=== PATIENT | female | born 1980 | race Caucasian/White ===

== ENCOUNTER → 2016-09-01 | Outpatient (CLI) | payer OTHER ==
[~2016-09-01] MED LIST: ADVIN25/60 INH; ALBU1AER9 INH; ALPR2TAB6 PO; ATR10 PO; CLON0.1T12 PO; FLX10 PO; MIRT30TA3 PO; NRN800 PO; PRED50TA PO; PRZ/40 PO; SBTSL/8 SL
== END | disposition home or self-care (01) ==
LOC: C.LAB 15:46
DX: Z02.83 Encounter for blood-alcohol and blood-drug test (principal)

== ENCOUNTER → 2016-09-04 | Outpatient (CLI) | payer OTHER | END | disposition home or self-care (01) | LOC: C.LAB 05:30 | DX: Z02.83 Encounter for blood-alcohol and blood-drug test (principal) ==

== ENCOUNTER 2016-09-05 02:06 | Emergency (ER) | payer OTHER ==
[~2016-09-05] VITALS: Ht 203.2 cm; Wt 101.5 kg
[~2016-09-05 02:06] MED LIST changes: -PRED50TA PO
[2016-09-05 02:10] VITALS: Ht 203.2 cm; Wt 101.5 kg
[2016-09-05] MEDS ORDERED: METHYLPREDNISOLONE 125 MG VIAL IV STA (02:42)
[2016-09-05] MEDS ORDERED: ALBUT/IPRATROP 3MG/0.5MG NEB 3 ML VIAL INH STA (02:42)
[2016-09-05 03:02] LABS: URINE APPEARANCE CLEAR (CLEAR); URINE BILIRUBIN NEG (NEG); URINE COLOR DK YELLOW; URINE NITRITE NEG (NEG); URINE PH 5.5 (4.5-7.5); UROBILINOGEN NEG (NEG); ZZUR CULT IF INDIC CLEAN CATCH NO
[2016-09-05 03:10] LABS: MANUAL MICROSCOPIC REQUIRED? NO; REVIEW REQ? NO
[2016-09-05 03:13] LABS: BASO % 0.2 %; BASO ABS # 0.02 K/uL (0-0.2); COMPLETE YES; EOS % 1.7 %; HEMATOCRIT 34.5 % (37-47); IG% 0.6 %; LYMPH % 40.6 %; LYMPH ABS # 3.36 K/uL (1.2-3.4); MEAN CELL VOLUME 83.7 fL (80-100); MEAN CORPUSCULAR HEMOGLOBIN 27.4 pg (25-34); MEAN CORPUSCULAR HGB CONC 32.8 g/dl (32-36); MEAN PLATELET VOLUME 10.7 fL (7.4-10.4); MONO % 12.1 %; NEUT % 44.8 %; PLATELET COUNT 299 K/uL (130-400); RED BLOOD COUNT 4.12 M/uL (4.2-5.4); WHITE BLOOD COUNT 8.28 K/uL (4.8-10.8)
[2016-09-05 03:29] LABS: PARTIAL THROMBOPLASTIN RATIO 1.1; PROTHROMBIN TIME (PATIENT) 11.1 SECONDS (9.0-12.0)
[2016-09-05 03:32] LABS: BUN/CREATININE RATIO 17.1 (10-20); CALCIUM 8.6 mg/dl (8.5-10.1); CREATININE 0.56 mg/dl (0.60-1.20); MAGNESIUM 2.4 mg/dl (1.8-2.4); POTASSIUM 3.6 mmol/L (3.5-5.1)
[2016-09-05 03:35] LABS: ALB/GLOB RATIO 0.6 (0.9-2)
--- NOTE | 2016-09-05 04:59 | EMERGENCY ROOM VISIT NOTE ---
History First contact with patient: 02:18 Chief Complaint: VAGINAL BLEEDING Stated Complaint: HEAVEY BLEEDING FROM VAGINAL AREA History of Present Illness The patient is a 35 year old female who presents to the Emergency Department by private vehicle for evaluation of her vaginal bleeding. The patient reports that she had her typical period one week ago. She noticed clots in the toilet after using the bathroom 3 days ago. This evening she developed pinkish discharge with wiping. She has had increasing bleeding since. She is went through 1.5 boxes of tampons since 5 PM. She reports this is abnormal for her. She reports a history of tubal ligation several years ago. She reports no chance for . She also reports history of during a twin . Patient recently was on a course of azithromycin secondary to bronchitis. She reports that her cough has not improved. She does have history of asthma as well as COPD. The patient complains of mild pelvis discomfort and overall rates her pain 9/10. She is tried nothing over-the- counter for her symptoms. She is on no blood thinners. She denies any headaches, dizziness, lightheadedness, hemoptysis, hematochezia, melena, hematuria, or dysuria. She denies any vaginal discharge or drainage. Review of Systems A complete 10-point Review of Systems was discussed with the patient, with pertinent positives and negatives listed in the History of Present Illness. All remaining Review of Systems questions can be considered negative unless otherwise specified. Past Medical/Surgical History Medical Problems: (1) Anxiety State Nos (2) Asthma, Unspecified (3) Cough (4) Enlargement Lymph Nodes (5) Headache (6) Hypotension (7) Nasal & Sinus Dis Nec (8) Tobacco Use Disorder (9) Viral Infection Nos Family History Diabetes mellitus FH: cancer FH: gallbladder disease FH: heart disease FH: lung disease Hypertension Kidney disease Kidney stones Seizures Social History Smoking Status: Current Every Day Smoker Smokeless Tobacco Use: No Alcohol Use: none Marital Status: in relationship Housing Status: lives with significant other Occupation Status: unemployed Current/Historical Medications Scheduled Buprenorphine HCl (Buprenorphine HCl), 8 MG SL DAILY Clonidine Hcl (Catapres), 0.1 MG PO BID Fluoxetine Hcl (Prozac), 40 MG PO DAILY Fluticasone Prop/Salmeterol (Advair Diskus 250/50 60 Dose), 1 PUFF INH BID Gabapentin (Gabapentin), 800 MG PO TID Hydroxyzine HCl (Hydroxyzine HCl), 10 MG PO TID Mirtazapine (Remeron), 30 MG PO DAILY Prednisone (Prednisone), 50 MG PO DAILY Scheduled PRN Albuterol (Proair Hfa), 2 PUFFS INH Q4H PRN for SOB/Wheezing Alprazolam (Alprazolam), 2 MG PO BID PRN for Anxiety Cyclobenzaprine HCl (Cyclobenzaprine HCl), 10 MG PO TID PRN for Muscle Spasms Allergies Coded Allergies: Ketorolac Tromethamine (Verified Allergy, Severe, RED, BLOTCHY SKIN, TIGHT JAW, 09/05/16) Nifedipine (Verified Allergy, Mild, 09/05/16) Tramadol (Unverified Allergy, Unknown, UNKNOWN, 09/05/16) Physical Exam Vital Signs Date Time Temp Pulse Resp B/P Pulse Ox O2 Delivery O2 Flow Rate FiO2 09/05/16 05:32 92 20 135/90 93 Room Air 09/05/16 04:12 84 16 119/67 91 Room Air 09/05/16 02:10 85 18 132/90 99 Room Air Pain Rating (0-10): 9 Physical Exam VITAL SIGNS - Vital signs and nursing notes were reviewed. GENERAL - 35-year-old Female appearing her stated age who is in no acute distress. Communicates well with provider and answers questions appropriately. LUNGS - Chest wall symmetric without accessory muscle use, intercostals retractions, or central cyanosis. Normal vesicular breath sounds CTA B/L. No wheezes, rales, or rhonchi appreciated. CARDIAC - RRR with S1/S2. No murmur, rubs, or gallops appreciated. ABDOMEN - Abdominal contour obese without pulsations or visible masses. BS normoactive all four quadrants. No tenderness to palpation appreciated throughout. No palpable masses, hepatosplenomegaly, or ascites noted. FISH RECEIVER - (An RN nurse wall insulation sprayer was present throughout the entire FISH RECEIVER procedure.) SPECULUM EXAM: - Water-soluble lubricant was applied to the plastic speculum and inserted into the vagina in a downward fashion towards the location of the cervix. When resistance was met, the speculum was opened to visualize the cervix. The cervical os was closed and without drainage. There was dried blood noted in the vaginal vault. The cervical os was cleaned with swallowing and no active bleeding was appreciated. The speculum was slowly removed to visualize the vaginal santacruz. No lesions, masses, or excoriations noted. Pt tolerated the procedure well and voiced no discomfort throughout the procedure. PSYCH - A&Ox3 and cooperates fully with examiner. Pt is very pleasant and interacts well with examiner. Medical Decision & Procedures ER Provider Diagnostic Interpretation: Radiological imaging and reports were reviewed by myself. Radiologist's Interpretation per [facility] as follows: US PELVIC/ENDOVAG: Ill defined heterogeneous lesion at the uterine fundus measuring 1.9 cm, possible fibroid or other etiology. Mildly complex hypoechoic area in the right ovary measuring 8 mm. Follow-up pelvic ultrasound to ensure resolution may be considered if clinically warranted. Unremarkable left ovary. Bilateral ovarian flow visualized. X-ray of the chest was obtained and reviewed by myself. No focal areas of consolidation appreciated per my interpretation. Radiologist's impression unavailable to time of dictation. Laboratory Results 09/05/16 02:55 Red Blood Count 4.12, Mean Corpuscular Volume 83.7, Mean Corpuscular Hemoglobin 27.4, Mean Corpuscular Hemoglobin Concent 32.8, Mean Platelet Volume 10.7, Neutrophils (%) (Auto) 44.8, Lymphocytes (%) (Auto) 40.6, Monocytes (%) (Auto) 12.1, Eosinophils (%) (Auto) 1.7, Basophils (%) (Auto) 0.2, Neutrophils # (Auto ) 3.71, Lymphocytes # (Auto) 3.36, Monocytes # (Auto) 1.00, Eosinophils # (Auto ) 0.14, Basophils # (Auto) 0.02 09/05/16 02:55 Test 09/05/16 02:35 09/05/16 02:55 Urine Color DK YELLOW Urine Appearance CLEAR (CLEAR) Urine pH 5.5 (4.5-7.5) Urine Specific [place] 1.020 (1.000-1.030) Urine Protein NEG (NEG) Urine Glucose (UA) NEG (NEG) Urine Ketones NEG (NEG) Urine Occult Blood 3+ (NEG) Urine Nitrite NEG (NEG) Urine Bilirubin NEG (NEG) Urine Urobilinogen NEG (NEG) Urine Leukocyte Esterase NEG (NEG) Urine WBC (Auto) 1-5 /hpf (0-5) Urine RBC (Auto) >30 /hpf (0-4) Urine Hyaline Casts (Auto) 1-5 /lpf (0-5) Urine Epithelial Cells (Auto) 10-20 /lpf (0-5) Urine Bacteria (Auto) NEG (NEG) Urine Test NEG (NEG) White Blood Count 8.28 K/uL (4.8-10.8) Red Blood Count 4.12 M/uL (4.2-5.4) Hemoglobin 11.3 g/dL (12.0-16.0) Hematocrit 34.5 % (37-47) Mean Corpuscular Volume 83.7 fL (80-100) Mean Corpuscular Hemoglobin 27.4 pg (25-34) Mean Corpuscular Hemoglobin Concent 32.8 g/dl (32-36) Platelet Count 299 K/uL (130-400) Mean Platelet Volume 10.7 fL (7.4-10.4) Neutrophils (%) (Auto) 44.8 % Lymphocytes (%) (Auto) 40.6 % Monocytes (%) (Auto) 12.1 % Eosinophils (%) (Auto) 1.7 % Basophils (%) (Auto) 0.2 % Neutrophils # (Auto) 3.71 K/uL (1.4-6.5) Lymphocytes # (Auto) 3.36 K/uL (1.2-3.4) Monocytes # (Auto) 1.00 K/uL (0.11-0.59) Eosinophils # (Auto) 0.14 K/uL (0-0.5) Basophils # (Auto) 0.02 K/uL (0-0.2) RDW Standard Deviation 51.3 fL (36.4-46.3) RDW Coefficient of Variation 16.6 % (11.5-14.5) Immature Granulocyte % (Auto) 0.6 % Immature Granulocyte # (Auto) 0.05 K/uL (0.00-0.02) Prothrombin Time 11.1 SECONDS (9.0-12.0) Prothromb Time International Ratio 1.0 (0.9-1.1) Activated Partial Thromboplast Time 28.0 SECONDS (21.0-31.0) Partial Thromboplastin Ratio 1.1 Anion Gap 7.0 mmol/L (3-11) Est Creatinine Clear Calc Drug Dose 200.6 ml/min Estimated GFR () 139.0 Estimated GFR (Non- 120.0 BUN/Creatinine Ratio 17.1 (10-20) Calcium Level 8.6 mg/dl (8.5-10.1) Magnesium Level 2.4 mg/dl (1.8-2.4) Total Bilirubin 0.3 mg/dl (0.2-1) Aspartate Amino Transf (AST/SGOT) 36 U/L (15-37) Alanine Aminotransferase (ALT/SGPT) 43 U/L (12-78) Alkaline Phosphatase 77 U/L (45-117) Total Protein 8.3 gm/dl (6.4-8.2) Albumin 3.2 gm/dl (3.4-5.0) Globulin 5.1 gm/dl (2.5-4.0) Albumin/Globulin Ratio 0.6 (0.9-2) Lipase 49 U/L (73-393) Medications Administered Medications (Trade) Dose Ordered Sig/Rianna Route Start Time Stop Time Status Last Admin Dose Admin Albuterol/ Ipratropium (Duoneb) 3 ml NOW STAT INH 09/05/16 02:42 09/05/16 02:45 DC 09/05/16 02:58 3 ML Methylprednisolone Sodium Succinate (Solu-Medrol IV) 125 mg NOW STAT IV 09/05/16 02:42 09/05/16 02:45 DC 09/05/16 02:58 125 MG ED Course Patient was seen and evaluated by myself. Previous emergency department visit notes were reviewed. Labs were drawn, saline lock in place. Chest x-ray and pelvic ultrasounds were obtained. The patient was treated with 125 mg IV Solu- Medrol and DuoNeb. Chest x-ray is unremarkable. Laboratory results demonstrate no acute leukocytosis, worrisome anemia, or bandemia. The patient has no significant electrolyte abnormalities. Urinalysis does not suggest infection. Urine is negative. Ultrasound results above. Pelvic exam was performed which was unimpressive. The patient was educated on today's findings. She will be placed on prednisone for her asthmatic bronchitis. In addition, she was encouraged to follow closely with her ADVANCED MANAGER from today's visit. The patient was educated on worrisome symptoms for return visit to the emergency department. Patient discharged home afebrile and in good condition. Medical Decision Given the patient's presentation and stated complaint, I did elect to perform the above-mentioned workup. The patient presents with complaints of vaginal bleeding as well as ongoing cough. She has been treated recently with coarse antibiotics. This is unsuccessful. The patient does have diffuse inspiratory wheezing throughout all lung pereira. She responded well to DuoNeb. She'll be treated with prednisone in the outpatient setting. She has no fever or leukocytosis. She has no significant anemia in comparison despite her complaints of vaginal bleeding. Pelvic ultrasound results as above. The patient will follow closely with her ADVANCED MANAGER. I did perform pelvic exam. She has no significant bleeding at this time. The patient was educated on worrisome symptoms for return visit to the emergency department. Patient discharged home afebrile and in good condition. In the evaluation and treatment this patient, the following differential diagnoses were considered: Ovarian torsion, rupturing cyst, ovarian hemorrhage, malignancy, mass, , pneumonia, amongst others. Impression Primary Impression: Vaginal bleeding Additional Impression: Asthmatic bronchitis Departure Information Dispostion Home / Self-Care Condition GOOD Prescriptions Prednisone (Prednisone) 50 Mg Tab 50 MG PO DAILY for 4 Days, #4 TAB Prov: Toni Dominguez, BEA 09/05/16 Referrals Aly Kumar M.D. (PCP) Rudy Lau M.D. Forms HOME CARE DOCUMENTATION FORM, IMPORTANT VISIT INFORMATION, WORK / SCHOOL INSTRUCTIONS Patient Instructions A Signature Page, [facility] [employer] Additional Instructions You have been seen in the emergency department today for your vaginal bleeding and asthmatic bronchitis. Please follow-up with your ADVANCED MANAGER tomorrow as discussed. Please continue your nebulizer and breathing treatments as previously prescribed. You have been prescribed Prednisone 50 mg to be taken orally once a day for the next 4 days. This is an anti-inflammatory medicine to be used to help minimize your symptoms. You should take the COMPLETE course of the medication. Return for any changing or worsening symptoms.
[2016-09-05] MEDS ORDERED: PRED50TA PO (05:22)
[2016-09-05 05:32] VITALS: BP 135/90; PULSE 92; O2SAT 93
--- NOTE | 2016-09-05 05:39 | EMERGENCY ROOM VISIT NOTE ---
ED Visit Note First contact with patient: 02:18 I saw this patient in conjunction with Toni Dominguez PA-C. I agree with his decision-making and treatment plan.
--- NOTE | 2016-09-05 07:36 | DIAGNOSTIC IMAGING REPORT ---
ULTRASOUND OF THE PELVIS CLINICAL HISTORY: Pelvic pain. Vaginal bleeding. COMPARISON STUDY: Pelvic ultrasound dated 11/05/2013. TECHNIQUE: Real-time, grayscale, and color flow sonography of the pelvis is performed both transabdominally and endovaginally. Images are reviewed in the transverse and longitudinal planes. FINDINGS: Uterus: The uterus is normal in size and echotexture, measuring 8.3 x 3.8 x 4.6 cm. Small fibroids are suspected measuring up to 1.9 cm. A small Nabothian cyst is incidentally noted. Endometrium: The endometrium is normal in appearance, and the endometrial stripe is normal in thickness measuring up to 0.2 cm. Ovaries: The ovaries are normal in size and morphology. The right ovary measures 3.0 x 1.6 x 1.8 cm and the left ovary measures 2.9 x 1.3 x 1.9 cm. Small follicles are noted bilaterally. Normal Doppler waveforms are shown within both ovaries. Pelvis: There is no free fluid in the cul-de-sac. No concerning adnexal lesion is seen. IMPRESSION: 1. No acute sonographic abnormality is identified in the pelvis. 2. Small fibroids are suspected. Electronically signed by: Nathan Harp M.D. 09/05/2016 7:34 AM Dictated Date/Time: 09/05/2016 7:32 AM
--- NOTE | 2016-09-05 07:40 | DIAGNOSTIC IMAGING REPORT ---
TWO VIEW CHEST CLINICAL HISTORY: Cough and wheezing. FINDINGS: PA and lateral chest radiographs are compared to study dated 05/31/2016. The cardiomediastinal silhouette is unremarkable. There are patchy airspace opacities in the left upper lobe. There is no pneumothorax. The bony thorax appears intact. IMPRESSION: There are patchy airspace opacities in the left upper lobe. Correlate clinically for evidence of an infectious or inflammatory pneumonitis. Radiographic follow-up to resolution is recommended. Electronically signed by: Nathan Harp M.D. 09/05/2016 7:38 AM Dictated Date/Time: 09/05/2016 7:36 AM
== END 2016-09-05 05:32 | disposition home or self-care (01) ==
LOC: C.EDB 02:07
DX: N93.9 Abnormal uterine and vaginal bleeding, unspecified (principal); J44.1 Chronic obstructive pulmonary disease with (acute) exacerbation; I10 Essential (primary) hypertension; F17.210 Nicotine dependence, cigarettes, uncomplicated; Z83.6 Family history of other diseases of the respiratory system

== ENCOUNTER → 2016-09-09 | Outpatient (CLI) | payer OTHER ==
[~2016-09-09] MED LIST changes: +PRED50TA PO
== END | disposition home or self-care (01) ==
LOC: C.LAB 04:02
DX: Z02.83 Encounter for blood-alcohol and blood-drug test (principal)